=== PATIENT | male | born 2000 | race Caucasian/White ===

== ENCOUNTER 2020-05-29 15:16 | Outpatient (REF) | payer OTHER, SELFPAY | END 2020-05-29 15:17 | disposition home or self-care (01) | LOC: HO.LAB 15:16 | PROVIDERS: Visit Provider Internal Medicine | DX: Z20.822 Contact with and (suspected) exposure to COVID-19 (principal) | CPT/HCPCS: C9803; U0003; U0005 ==

== ENCOUNTER 2022-09-18 17:36 | Emergency (ER) | payer MEDICAID, SELFPAY ==
--- NOTE | ~2022-09-18 | XR_ITS ---
EXAMINATION: XR LUMBOSACRAL SPINE CLINICAL INFORMATION: Pain COMPARISON: None available. TECHNIQUE: Three views of the lumbosacral spine. FINDINGS: No fracture or subluxation. Vertebral body height and alignment maintained. Disc spaces are maintained. The sacroiliac joints are symmetric. The sacrum is intact. Normal bowel gas pattern. XR/XR lumbar spine 2-3V IMPRESSION: Normal lumbar spine radiographs.
[2022-09-18 17:55] VITALS: BP 130/78; PULSE 72; RESP 18; TEMP 36.7; O2SAT 99; BMI 22.5
--- NOTE | 2022-09-18 17:55 | ED.GENADULT ---
HPI - General Adult General Chief complaint: General Medical Stated complaint: Dizziness/lower back pain Time Seen by Provider: 09/18/22 20:19 Source: patient, RN notes reviewed and old records reviewed Mode of arrival: ambulatory Limitations: language barrier History of Present Illness HPI narrative: 22-year-old male presents for evaluation of right lower back pain Patient reports he works in [employer] is constantly doing heavy lifting His pain is worse when he bends forward He reports some burning with urination he reports that he does not urinate frequently Denies any blood in the urine Denies any urethral discharge Denies any abdominal pain, nausea, vomiting Patient denies any trauma to the back No other complaints or concerns at this time Related Data Previous Rx's Medication Instructions Recorded cefdinir 300 mg capsule 300 mg PO BID #14 caps 09/18/22 cyclobenzaprine 10 mg tablet 10 mg PO TID PRN muscle spasm #12 09/18/22 tabs ibuprofen 600 mg tablet 600 mg PO Q6H PRN pain #20 tabs 09/18/22 Allergies Allergy/AdvReac Type Severity Reaction Status Date / Time No Known Allergies Allergy Verified 09/18/22 17:55 Review of Systems Constitutional: Constitutional: Denies chills and Denies fever(s) Cardiovascular: Cardiovascular: Denies chest pain and Denies dyspnea Respiratory: Respiratory: Denies cough and Denies dyspnea Gastrointestinal: Gastrointestinal: Denies abdominal pain, Denies nausea and Denies vomiting Genitourinary: Genitourinary: Reports dysuria Musculoskeletal: Musculoskeletal: Reports back pain Integumentary/Breasts: Skin/Breast: Denies rash PMFSH Social History Social History Advance Directives: No Advance Directives Information Provided: No Physical Exam ED Vital Signs: Vital Signs - 24 hr 09/18/22 17:55 09/18/22 21:10 09/18/22 21:12 Temperature 98.1 F Pulse Rate 72 56 56 Respiratory Rate 18 Blood Pressure 130/78 120/71 120/77 Pulse Oximetry 99 Oxygen Delivery Method Room Air 09/18/22 21:13 Temperature Pulse Rate 73 Respiratory Rate Blood Pressure 122/74 Pulse Oximetry Oxygen Delivery Method BMI result Body Mass Index 22.5 Const General: healthy appearing, comfortable, no acute distress, alert and awake Nutritional Appearance: well nourished Orientation/consciousness: patient oriented x3 HENMT Head: Yes normocephalic and Yes atraumatic Eyes Eyelids: Yes eyelids normal Conjunctivae: conjunctivae normal Sclerae: sclerae normal Corneas: corneas normal Pupils: Equal, round and reactive pupils present EOM: EOMs intact bilaterally Neck Neck: Yes full ROM Resp Effort & Inspection: normal respiratory effort, able to speak in complete sentences and not labored GI Inspection: No distended Palpation (GI): Soft to palpation, not firm, nontender, no guarding and not rigid Back/Spine/Pelvis Other: Tenderness to the right lumbar sacral region without vertebral tenderness. No step-offs or deformities. Negative straight leg raise. Skin General skin exam: elasticity normal Neuro General: patient oriented x3 Cranial nerves: Yes Equal, round and reactive pupils present and Yes Bilaterally intact EOM present Cognition (Neuro): normal cognition Motor exam (neuro): 5/5 motor strength present throughout Extrem Other: Moving all extremities well without any obvious deformities Course Course Course Narrative: RME - 22 yo Polish speaking male presenting to the ER for evaluation of non-radiating, non-traumatic right lower back pain for the last 1 month. Works 2 jobs and does a lot of physical work. Also reports pain with urination for the last 2 weeks. Patient also reports episodes of dizziness and he had an episode of syncope 1 week ago, fell and hit his face on the ground 1 week ago. Plan: UA, lab workup, EKG Reevaluation(s) Reevaluation #1: Patient is not orthostatic, lumbar x-ray without traumatic injuries. His UA did show cells but no bacteria. He did have some leukocyte esterase. No evidence of contamination. Given that he is symptomatic, I discussed concern for sexually transmitted infection the patient denies this and states he has not sexually active currently. Will treat with cefdinir x7 days Time: 21:53 Medications Administered Discontinued Medications Generic Name Dose Route Start Last Admin Trade Name Freq PRN Reason Stop Dose Admin Ketorolac Tromethamine 30 mg 09/18/22 20:52 09/18/22 21:20 Ketorolac Tromethamine 30 Mg/Ml Vial IM 09/18/22 20:53 30 mg ONCE ONE Administration Medical Decision Making Medical Decision Making MDM Narrative: 22-year-old male presents for evaluation of right lower back pain. His pain is in the lumbar sacral region less likely related to renal pathology, obstructive uropathy and no true CVA tenderness. The patient does complain of some burning with urination, a UA is pending at this time. The patient's back pain is reproducible on exam and worse with positional changes, most likely musculoskeletal origin. We will to [facility] to rule out fracture but I feel this is less likely. There are no warning signs for cauda equina syndrome. Will treat the patient's back pain, orthostatics we obtained the patient sources dizziness plan is vital signs are stable labs are reviewed and reassuring Differential Diagnosis Differential Diagnoses: The differential diagnosis associated with the presentation includes Muscle strain Radiculopathy Chronic back pain Arthritis Anteriorolisthesis Spondylosis Herniated disc Sciatica Lab Data MDM Lab Attestation statement: I reviewed the patient's lab results. No leukocytosis with a normal white count of 5.4. Hemoglobin hematocrit within normal limits. No left shift. Electrolytes within normal limits including sodium, potassium, chloride. Renal function within normal limits with a BUN of 14 and creatinine 0.93 09/18/22 18:17 09/18/22 18:17 Labs: Lab Results 09/18/22 09/18/22 09/18/22 Range/Units 18:17 18:17 20:54 WBC 5.4 (4.8-10.8) X10*3/uL RBC 5.64 (4.60-5.80) X10*6/uL Hgb 14.8 (14.0-18.0) g/dl Hct 46.0 (42.0-52.0) % MCV 81.6 (80.0-98.0) fL MCH 26.2 L (27.0-33.0) pg MCHC 32.2 (31.0-36.0) g/dl RDW 12.8 (11.0-16.0) % Plt Count 195 (160-400) X10*3/uL MPV 10.1 (9.4-12.4) fL Immature Gran % (Auto) 0.2 (0.0-0.4) % Neut % (Auto) 53.6 (45-73) % Lymph % (Auto) 34.3 (20-40) % [place] % (Auto) 7.8 (2-11) % Eos % (Auto) 3.0 (0-4) % Baso % (Auto) 1.1 (0-2) % Lymph # (Auto) 1.9 (1.2-4.9) X10*3/uL [place] # (Auto) 0.4 (0.1-1.2) X10*3/uL Eos # (Auto) 0.2 (0.0-0.4) X10*3/uL Baso # (Auto) 0.1 (0.0-0.2) X10*3/uL Abs Immat Gran (auto) 0.01 (0.00-0.03) X10*3/uL Absolute Neuts (auto) 2.9 (2.0-8.3) x10*3/uL Absolute Nucleated RBC 0.000 (0.0-0.012) X10*3/uL Nucleated RBC % (auto) 0.0 (0.0-0.2) /100WBC Sodium 141 (135-145) mmol/L Potassium 4.4 (3.3-5.1) mmol/L Chloride 107 (96-108) mmol/L Carbon Dioxide 27 (22-29) mmol/L Anion Gap 11 L (12-20) BUN 14 (9-16) mg/dL Creatinine 0.93 (0.5-1.4) mg/dL Estim Creat Clear Calc 136.5 Estimated GFR > 60 Random Glucose 90 (60-115) mg/dL Calcium 9.1 (8.4-10.2) mg/dL Magnesium 1.9 (1.6-2.6) mg/dL Total Bilirubin 0.5 (0.0-1.0) mg/dL Direct Bilirubin 0.2 (0.0-0.5) mg/dL AST 17 (5-37) U/L ALT 15 (0-40) U/L Alkaline Phosphatase 82 (39-117) U/L Total Protein 6.8 (6.5-8.0) g/dL Albumin 4.3 (3.5-5.0) g/dL Urine Color Yellow Urine Appearance Clear Urine pH 7.0 (5.0-9.0) Ur Specific [place] >= 1.030 H (1.005-1.025) Urine Protein Trace (Neg-Trace) mg/dL Urine Glucose (UA) Negative (Negative) mg/dL Urine Ketones Trace (Negative) mg/dL Urine Blood Negative (Negative) Urine Nitrite Negative (Negative) Ur Leukocyte Esterase Small (1+) H (Negative) Urine RBC 0-2 (0-2) /HPF Urine WBC 21-50 H (0-5) /HPF Ur Squamous Epith Cells 0-2 (0-2) /HPF Urine Bacteria None Seen (None Seen) Hyaline Casts 0-2 (0-2) /LPF Independent Interpretation I performed an independent interpretation of an: Plain X-Ray (No evidence of compression or burst fracture.) Discharge Plan Discharge Clinical Impression: Low back strain, Acute UTI Patient Disposition: Home, Self-Care Instructions: Acute Low Back Pain (ED) Additional Instructions: Your x-ray did not show any abnormalities to your lumbar spine Your blood work was reassuring Your back pain is most likely related to a muscle strain due to working and heavy lifting Use ibuprofen and cyclobenzaprine as needed for pain Cyclobenzaprine may make you sleepy, did not drink alcohol or drive after taking it Your urine sample did appear to show and mild infection which can explain your burning with urination Take the antibiotic as prescribed Prescriptions: New cyclobenzaprine 10 mg tablet 10 mg PO TID PRN (Reason: muscle spasm) Qty: 12 0RF ibuprofen 600 mg tablet 600 mg PO Q6H PRN (Reason: pain) Qty: 20 0RF cefdinir 300 mg capsule 300 mg PO BID Qty: 14 0RF Stand Alone Forms: Work/School Release
--- NOTE | 2022-09-18 17:59 | ECG_ITS ---
Test Reason : CHEST PAIN Blood Pressure : / mmHG Vent. Rate : 069 BPM Atrial Rate : 069 BPM P-R Int : 160 ms QRS Dur : 094 ms QT Int : 376 ms P-R-T Axes : 070 036 051 degrees QTc Int : 402 ms Normal sinus rhythm Normal ECG No previous ECGs available Referred By: Ksenia Bradley Electronically Signed By:Aravind Pelayo
[2022-09-18 18:22] LABS: MANUAL DIFF FLAG NO
[2022-09-18 18:24] LABS: Basophils Absolute Auto 0.1 X10*3/uL (0.0-0.2); Basophils Percent Auto 1.1 % (0-2); Eosinophils Absolute Auto 0.2 X10*3/uL (0.0-0.4); Hemoglobin 14.8 g/dl (14.0-18.0); Imm Gran Abs Auto 0.01 X10*3/uL (0.00-0.03); Imm Gran Pct Auto 0.2 % (0.0-0.4); Lymphocytes Absolute Auto 1.9 X10*3/uL (1.2-4.9); Lymphocytes Percent Auto 34.3 % (20-40); Mean Corpuscular HGB Conc 32.2 g/dl (31.0-36.0); Mean Corpuscular Hemoglobin 26.2 pg (27.0-33.0); Mean Corpuscular Volume 81.6 fL (80.0-98.0); Mean Platelet Volume 10.1 fL (9.4-12.4); Monocytes Absolute Auto 0.4 X10*3/uL (0.1-1.2); Monocytes Percent Auto 7.8 % (2-11); Neutrophils Absolute Auto 2.9 x10*3/uL (2.0-8.3); Neutrophils Percent Auto 53.6 % (45-73); Platelet Count 195 X10*3/uL (160-400); Red Blood Count 5.64 X10*6/uL (4.60-5.80); Red Cell Distribution Width 12.8 % (11.0-16.0); White Blood Count 5.4 X10*3/uL (4.8-10.8)
[2022-09-18 18:45] LABS: Alanine Aminotransferase 15 U/L (0-40); Albumin Level 4.3 g/dL (3.5-5.0); Alkaline Phosphatase 82 U/L (39-117); Anion Gap 11 (12-20); Aspartate Amino Transferase 17 U/L (5-37); Bilirubin Direct 0.2 mg/dL (0.0-0.5); Bilirubin Total 0.5 mg/dL (0.0-1.0); Blood Urea Nitrogen 14 mg/dL (9-16); Calcium 9.1 mg/dL (8.4-10.2); Carbon Dioxide 27 mmol/L (22-29); Chloride 107 mmol/L (96-108); Creatinine Clr Calc Pharmacy 136.5; Estimated Glomerular Filt Rate > 60; Glucose Random 90 mg/dL (60-115); Magnesium 1.9 mg/dL (1.6-2.6); Potassium 4.4 mmol/L (3.3-5.1); Sodium 141 mmol/L (135-145); Total Protein 6.8 g/dL (6.5-8.0)
[2022-09-18 21:00] LABS: Appearance Urine Clear; Color Urine Yellow; Glucose Urine UA Negative (Negative); Leukocyte Esterase Urine Small (1+) (Negative); Nitrite Urine Negative (Negative); Specific Gravity - Urine >= 1.030 (1.005-1.025); UMIC TRIGGER UACC YES; Urine Blood Negative (Negative); Urine Ketones Trace mg/dL (Negative); Urine Protein Trace mg/dL (Neg-Trace)
[2022-09-18 21:05] LABS: Bacteria Urine None Seen (None Seen); Hyaline Casts Urine 0-2 /LPF (0-2); RBC Urine 0-2 /HPF (0-2); Squamous Epithelial Cell Urine 0-2 /HPF (0-2); UACC Culture Trigger YES; WBC Urine 21-50 /HPF (0-5)
[2022-09-18 21:10] VITALS: BP 120/71; PULSE 56
[2022-09-18 21:12] VITALS: BP 120/77; PULSE 56
[2022-09-18 21:13] VITALS: BP 122/74; PULSE 73
[2022-09-18] MEDS: Ketorolac Tromethamine 30 MG/ML VIAL IM (21:20)
== END 2022-09-18 22:09 | disposition home or self-care (01) ==
PROVIDERS: Physician Assistant; Emergency Provider Internal Medicine
DX: N39.0 Urinary tract infection, site not specified (principal); R42 Dizziness and giddiness; M54.50 Low back pain, unspecified; R07.89 Other chest pain; R11.2 Nausea with vomiting, unspecified; R10.2 Pelvic and perineal pain; Z79.899 Other long term (current) drug therapy
CPT/HCPCS: 36415; 72100; 80048; 80076; 81001; 81003; 83735; 85025; 87086; 93005; 96372; 99284; J1885

== ENCOUNTER → 2022-09-18 17:59 | Outpatient (BNV) | payer MEDICAID, SELFPAY | PROVIDERS: Emergency Provider Internal Medicine; Visit Provider Internal Medicine Cardiovascular Disease | DX: R07.9 Chest pain, unspecified (principal) | CPT/HCPCS: 93010 ==